=== PATIENT | male | born 1980 | race Caucasian/White ===

== ENCOUNTER → 2016-08-29 | Outpatient (CLI) | payer OTHER ==
[~2016-08-29] MED LIST: GADOBUTROL 10 ML VIAL IVP ONE; IOPAMIDOL (ISOVUE 370) 100 ML BTL IV ONE; LIDOCAINE 1% 30 ML SDV ONE; NA BICARBONATE 50 MEQ/50 ML VIAL ONE
== END ==
LOC: FIMAGING 11:27
PROVIDERS: ATTEND Orthopaedic Surgery
DX: S63.519 Sprain of carpal joint of unspecified wrist (principal)
CPT/HCPCS: A9585; Q9967